=== PATIENT | male | born 1950 ===

== ENCOUNTER 2017-07-18 14:53 | Inpatient (IN) | payer OTHER ==
[2017-07-18 15:03] VITALS: BMI 25.6
[2017-07-18] MEDS ORDERED: Piperacill/Tazo 3.375gm in Dex 3.375 GM/50 ML BAG IVPB STA (15:38)
[2017-07-18 15:49] LABS: BASO % 0.6 % (0.0-2.0); EOS # 0.3 K/uL (0.0-0.7); EOS % 5.8 % (0.0-4.0); HEMOGLOBIN 14.5 g/dL (12.0-18.0); LYMPH # 1.4 K/uL (1.0-4.3); LYMPH % 32.5 % (20.0-40.0); MEAN CELL VOLUME 94.6 fL (80.0-94.0); MEAN CORPUSCULAR HEMOGLOBIN 32.4 pg (27.0-31.0); MEAN CORPUSCULAR HGB CONC 34.3 g/dL (33.0-37.0); MONO # 0.6 K/uL (0.0-0.8); MONO % 12.7 % (0.0-10.0); NEUT # 2.1 K/uL (1.8-7.0); NEUT % 48.4 % (50.0-75.0); NRBC % 0.1 % (0.0-2.0); RBC 4.48 Mil/uL (4.40-5.90); RED CELL DISTRIBUTION WIDTH 12.7 % (11.5-14.5); WHITE BLOOD COUNT 4.4 K/uL (4.8-10.8)
[2017-07-18 16:02] LABS: PROTHROMBIN TIME 11.7 SECONDS (9.7-12.2)
[2017-07-18 16:03] LABS: ALB/GLOB RATIO 1.1 (1.0-2.1); ALBUMIN 4.1 g/dL (3.5-5.0); ALT/SGPT 28 U/L (21-72); AST/SGOT 29 U/L (17-59); BLOOD UREA NITROGEN 14 mg/dL (9-20); CALCIUM 8.4 mg/dl (8.6-10.4); GFR AFRICAN-AMERICAN > 60; GFR NON-AFRICAN AMERICAN > 60
--- NOTE | 2017-07-18 16:16 | C.PDOC ---
History Of Present Illness 67 y/o male sent to ED from clinic for evaluation and admission secondary to bilateral leg cellulites worsening for 3 weeks. Patient denies fever, chills, numbness, drainage or any other complaints at this time. considtion not improving outpt.on unknown meds. pt homelss poor historia. Time Seen by Provider: 07/18/17 15:32 Chief Complaint (Nursing): Abnormal Skin Integrity History Per: Patient History/Exam Limitations: no limitations Onset/Duration Of Symptoms: Days Current Symptoms Are (Timing): Still Present Past Medical History Reviewed: Historical Data, Nursing Documentation, Vital Signs Vital Signs: Last Vital Signs Temp 97.3 F L 07/18/17 17:28 Pulse 68 07/18/17 17:28 Resp 16 07/18/17 17:28 BP 113/71 07/18/17 17:28 Pulse Ox 98 07/18/17 17:54 - Medical History PMH: No Chronic Diseases Surgical History: No Surg Hx Family History: States: No Known Family Hx - Social History Hx Alcohol Use: Yes Hx Substance Use: No - Immunization History Hx Tetanus Toxoid Vaccination: No Hx Influenza Vaccination: No Hx Pneumococcal Vaccination: No Review Of Systems Constitutional: Negative for: Fever, Chills Gastrointestinal: Negative for: Nausea, Vomiting Musculoskeletal: Positive for: Leg Pain Skin: Negative for: Rash Neurological: Negative for: Weakness, Numbness Physical Exam - Physical Exam Appears: Non-toxic, No Acute Distress Skin: Warm, Dry, No Rash Head: Atraumatic, Normacephalic Oral Mucosa: Moist Neck: Supple Cardiovascular: Rhythm Regular Respiratory: Normal Breath Sounds, No Rales, No Rhonchi, No Wheezing Gastrointestinal/Abdominal: Soft, No Tenderness, No Guarding, No Rebound Extremity: No Deformity, Other (bilateral lower leg erythema. chronic venous stasis bilaterally) Pulses: Left Dorsalis Pedis: Normal, Right Dorsalis Pedis: Normal Neurological/Psych: Oriented x3, Normal Motor, Normal Sensation Gait: Steady ED Course And Treatment - Laboratory Results Result Diagrams: 07/18/17 15:44 07/18/17 15:44 O2 Sat by Pulse Oximetry: 98 (RA) Pulse Ox Interpretation: Normal Disposition - Disposition Disposition: HOSPITALIZED Disposition Time: 05:00 Condition: STABLE - Clinical Impression Clinical Impression: Cellulitis - Scribe Statement The provider has reviewed the documentation as recorded by the Scribzan Jacobson All medical record entries made by the Jacklynibzan were at my direction and personally dictated by me. I have reviewed the chart and agree that the record accurately reflects my personal performance of the history, physical exam, medical decision making, and the department course for this patient. I have also personally directed, reviewed, and agree with the discharge instructions and disposition. Decision To Admit - Pt Status Changed To: Hospital Disposition Of: Inpatient - Admit Certification Admit to Inpatient:: After my assessment, the patient will require hospitalization for at least two midnights. This is because of the severity of symptoms shown, intensity of services needed, and/or the medical risk in this patient being treated as an outpatient. - InPatient: Physician Admission Certification: I certify that this patient requires 2 or more midnights of care for the following reason:: poor outpt candidate needs iv antibioti s - . Bed Request Type: Regular Admitting Physician: Lisa Barrera Patient Diagnosis: Cellulitis
[2017-07-18] MEDS ORDERED: Piperacillin/Tazobact 3.375 gm 100 ML IVPB ONE (16:19)
--- NOTE | 2017-07-18 16:19 | CP.PCM.HP ---
<Yaima Lagunas - Last Filed: 07/19/17 00:10> History of Present Illness - History of Present Illness History of Present Illness: 67 yo M was sent to the ED by [facility] this afternoon with complaints of B/L leg swelling, redness and pain. Patient reports these symptoms began approximately 15 days to 1 month ago. He sought treatment at [facility] at that time, and reports compliance with a medication given, but cannot recall its name. He reports swelling from mid gant down through toes on his legs B/L, with redness and warmth. He also reports a burning sensation from above the knee extending to his toes. He reports that the skin on the bottom of his feet has been shedding. Although all these symptoms have been improving, he is concerned that they have not disappeared yet. He also reports 4 days of right eye discomfort, including tearing, itchiness and a gritty sensation. He denies any recent illness, vision changes, fevers, chest pain, shortness of breath, abdominal pain. Patient is homeless and denies any trauma to his lower extremities. PMHx-unable to provide because does not know PSHx-Denies Family Hx-unable to provide because does not know Social Hx-denies tobacco or drug use. Drinks rum several times per week Allergies-Denies Meds-unknown Abx provided by clinic Present on Admission - Present on Admission Any Indicators Present on Admission: No History of DVT/PE: No History of Uncontrolled Diabetes: No Urinary Catheter: No Decubitus Ulcer Present: No Past Patient History - Past Social History Smoking Status: Never Smoked - PSYCHIATRIC Hx Substance Use: No - SURGICAL HISTORY Hx Surgeries: No - ANESTHESIA Hx Anesthesia: No Meds Allergies/Adverse Reactions: Allergies Allergy/AdvReac Type Severity Reaction Status Date / Time No Known Allergies Allergy Verified 07/18/17 15:01 Physical Exam - Constitutional Appears: Non-toxic, No Acute Distress - Head Exam Head Exam: ATRAUMATIC, NORMAL INSPECTION, NORMOCEPHALIC - Eye Exam Eye Exam: Conjunctival injection (on right), EOMI, Normal appearance - ENT Exam ENT Exam: Mucous Membranes Moist, Normal Exam - Neck Exam Neck exam: Positive for: Normal Inspection - Respiratory Exam Respiratory Exam: Chest Wall Tenderness, NORMAL BREATHING PATTERN - Cardiovascular Exam Cardiovascular Exam: REGULAR RHYTHM, +S1, +S2. absent: Bradycardia, Tachycardia - GI/Abdominal Exam GI & Abdominal Exam: Normal Bowel Sounds, Soft. absent: Tenderness - Extremities Exam Extremities exam: Positive for: full ROM. Negative for: pedal edema Additional comments: erythema to mid gant bilaterally nonpitting edema of erythematous edematous regions erythema is not sharply demarcated no hair on anterior shins noted no pain on palpation feet calloused and non smooth bilaterally with skin on the plantar surface thickened toenails, likely fungal origin capillary refill <2seconds - Back Exam Back exam: FULL ROM, NORMAL INSPECTION - Neurological Exam Neurological exam: Alert, CN II-XII Intact, Oriented x3 - Psychiatric Exam Psychiatric exam: Normal Affect, Normal Mood - Skin Skin Exam: Dry, Intact, Normal Color, Warm Results - Vital Signs Recent Vital Signs: Last Vital Signs Temp 98.2 F 07/18/17 15:04 Pulse 85 07/18/17 15:04 Resp 20 07/18/17 15:04 BP 117/79 07/18/17 15:04 Pulse Ox 98 07/18/17 16:17 - Labs Result Diagrams: 07/18/17 15:44 07/18/17 15:44 Labs: Laboratory Results - last 24 hr 07/18/17 07/18/17 07/18/17 15:44 15:44 15:44 WBC 4.4 L RBC 4.48 Hgb 14.5 Hct 42.4 MCV 94.6 H MCH 32.4 H MCHC 34.3 RDW 12.7 Plt Count 270 MPV 7.0 L Neut % (Auto) 48.4 L Lymph % (Auto) 32.5 [place] % (Auto) 12.7 H Eos % (Auto) 5.8 H Baso % (Auto) 0.6 Neut # (Auto) 2.1 Lymph # (Auto) 1.4 [place] # (Auto) 0.6 Eos # (Auto) 0.3 Baso # (Auto) 0.0 PT 11.7 INR 1.0 APTT 33 Sodium 140 Potassium 3.8 Chloride 101 Carbon Dioxide 27 Anion Gap 17 BUN 14 Creatinine 0.8 Est GFR ( Amer) > 60 Est GFR (Non-Af Amer) > 60 Random Glucose 96 Calcium 8.4 L Total Bilirubin 0.6 AST 29 ALT 28 Alkaline Phosphatase 90 Total Protein 7.7 Albumin 4.1 Globulin 3.6 Albumin/Globulin Ratio 1.1 Assessment & Plan - Assessment and Plan (Free Text) Assessment: cellulitis, bilateral leg edema dopplers of lower extremities negative for DVT follow up BNP monitor vitals monitor cbc EKG f/u blood cultures vanc and zosyn started in ED prophylaxis lovenox 40 SC daily diet: Heart Healthy Diet Yaima Lagunas PGY1 - Date & Time Date: 07/18/17 Time: 18:00 <Lisa Barrera V - Last Filed: 07/19/17 17:39> Results - Vital Signs Recent Vital Signs: Last Vital Signs Temp 98.4 F 07/19/17 15:35 Pulse 67 07/19/17 15:35 Resp 20 07/19/17 15:35 BP 114/59 L 07/19/17 15:35 Pulse Ox 97 07/19/17 15:35 - Labs Result Diagrams: 07/19/17 06:44 07/19/17 06:44 Labs: Laboratory Results - last 24 hr 07/19/17 07/19/17 06:44 06:44 WBC 4.2 L RBC 4.11 L Hgb 13.6 Hct 39.1 MCV 95.1 H MCH 33.1 H MCHC 34.8 RDW 12.6 Plt Count 253 MPV 7.3 Neut % (Auto) 54.6 Lymph % (Auto) 26.5 [place] % (Auto) 11.9 H Eos % (Auto) 6.3 H Baso % (Auto) 0.7 Neut # (Auto) 2.3 Lymph # (Auto) 1.1 [place] # (Auto) 0.5 Eos # (Auto) 0.3 Baso # (Auto) 0.0 Sodium 140 Potassium 3.8 Chloride 105 Carbon Dioxide 27 Anion Gap 12 BUN 13 Creatinine 0.8 Est GFR ( Amer) > 60 Est GFR (Non-Af Amer) > 60 Random Glucose 95 Calcium 7.7 L Phosphorus 3.1 Magnesium 2.0 Total Bilirubin 0.5 AST 23 ALT 24 Alkaline Phosphatase 73 NT-Pro-B Natriuret Pep 72.8 Total Protein 6.0 L Albumin 3.1 L D Globulin 2.9 Albumin/Globulin Ratio 1.1 Attending/Attestation - Attestation I have personally seen and examined this patient.: Yes I have fully participated in the care of the patient.: Yes I have reviewed all pertinent clinical information: Yes Notes (Text): This is late computer entry entry for 07/18/17. Patient seen, examined and case discussed with medical transport specialist. 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 Patient has noted mild rubor which improves upon elevation as well as extensive toe fungus and nail dystophy bilateral. Patient has noting swelling, nonpitting. Patient also reporting running eye (right), started 3 days ago, no trauma to eye. Patient is homeless, denies prior medical history. Assessment/Plan 1) Cellulitis Possible venous insufficiency * Admit to general medical floor * Start IV Abx: Zosyn 3.375g IV Q 6Hours and Vancomycin 1 gram IV Q 12 hours ( patient has received dose of Zosyn and Vancomycin on admission in the ED) * Florator 250mg PO BID * Venous doppler completed in the ED awaiting official report * Arterial doppler given areas of hairlessness r/o arterial insuffiency. Patient is lying comfortably in bed not suspicious for ischemic foot. * check BNP and echocardiogram r/o cardiac etiology for leg swelling * f/u blood cultures 2) Conjunctivitis, unspecified * appears allergic * start on Artificial drops 3) Tinea pedis, nail Dystophy * Podiatry (Dr. Jaxson Ray) fire suppression captain-->help appreciated 4) Prophylactic measure * Lovenox 40mg SC daily * Heart Healthy Diet * Florastor 250mg PO BID * gentle IV hydration * PT eval
[2017-07-18] MEDS: Aritificial Tears (15ml) OU SCH (18:50)
[2017-07-18] MEDS: Sodium Chloride 0.9% 1,000 ML IV SCH (19:09)
[2017-07-18] MEDS: Vancomycin 1 gm/NS 200 ml 1 GM/200 ML BAG IVPB SCH (19:25)
[2017-07-19 01:21] VITALS: RESP 20
[2017-07-19] MEDS: Piperacill/Tazo 3.375gm in Dex 3.375 GM/50 ML BAG IVPB SCH ×3 (05:00→21:25)
[2017-07-19] MEDS: Vancomycin 1 gm/NS 200 ml 1 GM/200 ML BAG IVPB SCH ×2 (05:30→17:34)
[2017-07-19 07:05] LABS: BASO % 0.7 % (0.0-2.0); EOS # 0.3 K/uL (0.0-0.7); EOS % 6.3 % (0.0-4.0); HEMOGLOBIN 13.6 g/dL (12.0-18.0); LYMPH # 1.1 K/uL (1.0-4.3); LYMPH % 26.5 % (20.0-40.0); MEAN CELL VOLUME 95.1 fL (80.0-94.0); MEAN CORPUSCULAR HEMOGLOBIN 33.1 pg (27.0-31.0); MEAN CORPUSCULAR HGB CONC 34.8 g/dL (33.0-37.0); MEAN PLATELET VOLUME 7.3 fL (7.2-11.7); MONO # 0.5 K/uL (0.0-0.8); MONO % 11.9 % (0.0-10.0); NEUT # 2.3 K/uL (1.8-7.0); NEUT % 54.6 % (50.0-75.0); NRBC % 0.1 % (0.0-2.0); RBC 4.11 Mil/uL (4.40-5.90); RED CELL DISTRIBUTION WIDTH 12.6 % (11.5-14.5); WHITE BLOOD COUNT 4.2 K/uL (4.8-10.8)
[2017-07-19 07:15] LABS: ALB/GLOB RATIO 1.1 (1.0-2.1); ALBUMIN 3.1 g/dL (3.5-5.0); ALT/SGPT 24 U/L (21-72); AST/SGOT 23 U/L (17-59); BLOOD UREA NITROGEN 13 mg/dL (9-20); CALCIUM 7.7 mg/dl (8.6-10.4); GFR AFRICAN-AMERICAN > 60; GFR NON-AFRICAN AMERICAN > 60
[2017-07-19 07:17] LABS: B-TYPE NATRIURETIC PEPTIDE 72.8 pg/mL (0-900)
[2017-07-19] MEDS: Aritificial Tears (15ml) OU SCH ×2 (09:49→19:30)
[2017-07-19] MEDS: Saccharomyces Boulardi 250 mg Cap PO SCH ×2 (09:49→17:33)
[2017-07-19] MEDS: Enoxaparin 40 mg Syringe SC SCH (09:49)
[2017-07-19] MEDS: Sodium Chloride 0.9% 1,000 ML IV SCH ×2 (14:00→21:28)
--- NOTE | 2017-07-19 16:10 | CP.PCM.PN ---
<Lino Arevalo - Last Filed: 07/19/17 16:16> Subjective - Date & Time of Evaluation Date of Evaluation: 07/19/17 Time of Evaluation: 10:00 - Subjective Subjective: PGY-[address] Barrera. No acute events noted overnight. Patient was resting comfortably in bed. He offered no complaints. He slept well and ate his breakfast. His legs did not hurt. He denied chest pain, difficulty breathing, fever, chills, nausea, vomiting. Objective - Vital Signs/Intake and Output Vital Signs (last 24 hours): Temp Pulse Resp BP Pulse Ox 98.2 F 69 20 99/56 L 97 07/19/17 08:00 07/19/17 08:00 07/19/17 08:00 07/19/17 08:00 07/19/17 08:00 Intake and Output: 07/19/17 07/19/17 06:59 18:59 Intake Total 1450 980 Output Total 600 Balance 1450 380 - Medications Medications: Current Medications Artificial Tears (Artificial Tears) 1 ml OU BID [facility] Last Admin: 07/19/17 09:49 Dose: 1 drop Clotrimazole (Lotrimin 1%) 0 gm TOP BID [facility] Enoxaparin Sodium (Lovenox) 40 mg SC DAILY [facility] Last Admin: 07/19/17 09:49 Dose: 40 mg Piperacillin Sod/Tazobactam Sod (Zosyn 3.375 Gm Iv Premix) 3.375 gm in 50 mls @ 100 mls/hr IVPB Q8H [facility] PRN Reason: Protocol Last Admin: 07/19/17 13:59 Dose: 100 mls/hr Sodium Chloride (Sodium Chloride 0.9%) 1,000 mls @ 50 mls/hr IV .Q20H [facility] Last Admin: 07/19/17 14:00 Dose: 50 mls/hr Vancomycin/Sodium Chloride (Vancomycin 1 Gm/Ns 200 Ml) 1 gm in 200 mls @ 133.333 mls/hr IVPB Q12H [facility] PRN Reason: Protocol Stop: 07/23/17 18:31 Last Admin: 07/19/17 05:30 Dose: 133.333 mls/hr Saccharomyces Boulardii (Florastor) 250 mg PO BID [facility] Last Admin: 07/19/17 09:49 Dose: 250 mg - Labs Labs: 03/17/18 06:44 07/19/17 06:44 PT 11.7 SECONDS (9.7-12.2) 07/18/17 15:44 INR 1.0 07/18/17 15:44 APTT 33 SECONDS (21-34) 07/18/17 15:44 - Additional Findings Additional findings: - Constitutional Appears: Non-toxic, No Acute Distress - Head Exam Head Exam: ATRAUMATIC, NORMAL INSPECTION, NORMOCEPHALIC - Eye Exam Eye Exam: Conjunctival injection (on right), EOMI, Normal appearance - ENT Exam ENT Exam: Mucous Membranes Moist, Normal Exam - Neck Exam Neck exam: Positive for: Normal Inspection - Respiratory Exam Respiratory Exam: Chest Wall Tenderness, NORMAL BREATHING PATTERN - Cardiovascular Exam Cardiovascular Exam: REGULAR RHYTHM, +S1, +S2. absent: Bradycardia, Tachycardia - GI/Abdominal Exam GI & Abdominal Exam: Normal Bowel Sounds, Soft. absent: Tenderness - Extremities Exam Extremities exam: Positive for: full ROM. Negative for: pedal edema Additional comments: erythema to mid gant bilaterally nonpitting edema of erythematous edematous regions erythema is not sharply demarcated no hair on anterior shins noted no pain on palpation feet calloused and non smooth bilaterally with skin on the plantar surface thickened toenails, likely fungal origin capillary refill <2seconds - Back Exam Back exam: FULL ROM, NORMAL INSPECTION - Neurological Exam Neurological exam: Alert, CN II-XII Intact, Oriented x3 - Psychiatric Exam Psychiatric exam: Normal Affect, Normal Mood - Skin Skin Exam: Dry, Intact, Normal Color, Warm Assessment and Plan - Assessment and Plan (Free Text) Assessment: Cellulitis, Bilateral Leg Edema Vitals NORMAL Podiatry on board - Dr Heather Ray Dopplers of lower extremities negative for DVT ProBNP NORMAL F/U blood cultures F/U ECHO Zosyn 3.375g IVP Q8H Vancomycin 1g IVP Q12H Clotrimazole 1% cream NS @ 50cc/hr Florastor 250mg PO BID Prophylaxis Lovenox 40 SC daily Heart Healthy Diet Contraindications to SCDs PT eval and treat <Lisa Barrera V - Last Filed: 07/19/17 17:43> Objective - Vital Signs/Intake and Output Vital Signs (last 24 hours): Temp Pulse Resp BP Pulse Ox 98.4 F 67 20 114/59 L 97 07/19/17 15:35 07/19/17 15:35 07/19/17 15:35 07/19/17 15:35 07/19/17 15:35 Intake and Output: 07/19/17 07/19/17 06:59 18:59 Intake Total 1450 980 Output Total 600 Balance 1450 380 - Medications Medications: Current Medications Artificial Tears (Artificial Tears) 1 ml OU BID [facility] Last Admin: 07/19/17 09:49 Dose: 1 drop Clotrimazole (Lotrimin 1%) 0 gm TOP BID [facility] Last Admin: 07/19/17 17:33 Dose: 1 applic Enoxaparin Sodium (Lovenox) 40 mg SC DAILY [facility] Last Admin: 07/19/17 09:49 Dose: 40 mg Piperacillin Sod/Tazobactam Sod (Zosyn 3.375 Gm Iv Premix) 3.375 gm in 50 mls @ 100 mls/hr IVPB Q8H [facility] PRN Reason: Protocol Last Admin: 07/19/17 13:59 Dose: 100 mls/hr Sodium Chloride (Sodium Chloride 0.9%) 1,000 mls @ 50 mls/hr IV .Q20H [facility] Last Admin: 07/19/17 14:00 Dose: 50 mls/hr Vancomycin/Sodium Chloride (Vancomycin 1 Gm/Ns 200 Ml) 1 gm in 200 mls @ 133.333 mls/hr IVPB Q12H [facility] PRN Reason: Protocol Stop: 07/23/17 18:31 Last Admin: 07/19/17 17:34 Dose: 133.333 mls/hr Saccharomyces Boulardii (Florastor) 250 mg PO BID [facility] Last Admin: 07/19/17 17:33 Dose: 250 mg - Labs Labs: 07/19/17 06:44 07/19/17 06:44 PT 11.7 SECONDS (9.7-12.2) 07/18/17 15:44 INR 1.0 07/18/17 15:44 APTT 33 SECONDS (21-34) 07/18/17 15:44 Attending/Attestation - Attestation I have personally seen and examined this patient.: Yes I have fully participated in the care of the patient.: Yes I have reviewed all pertinent clinical information, including history, physical exam and plan: Yes Notes (Text): Patient seen, examined and case discussed with medical liaison. Patient seen this morning. Patient denies acute complaints. Patient concerned about appearance of his legs. Patient's rubor over lower extremities has disappeared. No pitting edema. Discussed with insurance and financial services agent, Dr Ray, likely tinea pedis and recommended clipping of the nails; can follow-up with her or with the clinic which he was referred from. patient completed echocardiogram and dopplers. Patient to work with physical therapy today. Patient is likely discharge tomorrow. Assessment/Plan 1) Cellulitis Possible venous insufficiency * Admit to general medical floor * Start IV Abx: Zosyn 3.375g IV Q 6Hours and Vancomycin 1 gram IV Q 12 hours ( patient has received dose of Zosyn and Vancomycin on admission in the ED) * Florator 250mg PO BID * Venous doppler completed in the ED awaiting official report * Arterial doppler given areas of hairlessness r/o arterial insuffiency. Patient is lying comfortably in bed not suspicious for ischemic foot. * check BNP and echocardiogram r/o cardiac etiology for leg swelling * f/u blood cultures 2) Conjunctivitis, unspecified * appears allergic * start on Artificial drops 3) Tinea pedis, nail Dystophy * Podiatry (Dr. Jxason Ray) general education instructor-->help appreciated 4) Prophylactic measure * Lovenox 40mg SC daily * Heart Healthy Diet * Florastor 250mg PO BID * gentle IV hydration * PT eval
[2017-07-19] MEDS: Clotrimazole 1% Cream(30 gm) TOP SCH (17:33)
[2017-07-19] MEDS ORDERED: Vancomycin 1 gm/NS 200 ml 1 GM/200 ML BAG IVPB SCH (18:00)
--- NOTE | 2017-07-19 21:01 | CARD ---
APPROVED REPORT EXAM: Two-dimensional and M-mode echocardiogram with Doppler and color Doppler. Other Information Quality : [employer] : INDICATION EDEMA 2D DIMENSIONS IVSd0.9 (0.7-1.1cm)LVDd2.3 (3.9-5.9cm) PWd0.8 (0.7-1.1cm)LVDs3.4 (2.5-4.0cm) FS (%) 49.7 %LVEF (%)170.1 (>50%) M-Mode DIMENSIONS RVDd1.25 (2.1-3.2cm)Left Atrium (MM)3.74 (2.5-4.0cm) IVSd0.68 (0.7-1.1cm)Aortic Root3.22 (2.2-3.7cm) LVDd4.92 (4.0-5.6cm)Aortic Cusp Exc.1.94 (1.5-2.0cm) PWd0.78 (0.7-1.1cm)FS (%) 39 % LVDs3.02 (2.0-3.8cm)LVEF (%)69 (>50%) Mitral Valve MV E Bgahappl80.3cm/sMV A Qtidycev78.5cm/sE/A ratio1.4 TDI E/Lateral E'0.0E/Medial E'0.0 Tricuspid Valve TR Peak Fromyxde281ve/sTR Peak Gr.[id number] LEFT VENTRICLE The left ventricle is normal size. There is normal left ventricular wall thickness. The left ventricular function is normal. The left ventricular ejection fraction is within the normal range. There is normal LV segmental wall motion. The left ventricular diastolic function is normal. RIGHT VENTRICLE The right ventricle is normal size. ATRIA The left atrium size is normal. The right atrium size is normal. AORTIC VALVE The aortic valve is normal in structure. MITRAL VALVE The mitral valve is normal in structure. TRICUSPID VALVE There is mild tricuspid regurgitation. <Conclusion> Normal LV systolic function. Normal chamber size. Mild TR.
--- NOTE | 2017-07-19 21:55 | CP.PCM.CON ---
History of Present Illness - History of Present Illness History of Present Illness: 67 year old male seen at bedside complaining of painful, red, swollen legs and fungal toes. Patient states that changes to his legs have been worsening over the last three months. He denies any known illiciting events. Denies any attempts at treatment or seeing any doctors for this problem until now. Denies any further pedal complaints at this time. Denies any recent associated N/V/F/C/ CP/SOB/D/posterior calf pain when squeezed Review of Systems - Review of Systems Review of Systems: As per HPI Past Patient History - Past Social History Smoking Status: Never Smoked - MUSCULOSKELETAL/RHEUMATOLOGICAL Hx Falls: No - PSYCHIATRIC Hx Substance Use: No - SURGICAL HISTORY Hx Surgeries: No - ANESTHESIA Hx Anesthesia: No Meds Allergies/Adverse Reactions: Allergies Allergy/AdvReac Type Severity Reaction Status Date / Time No Known Allergies Allergy Verified 07/18/17 15:01 - Medications Medications: Current Medications Artificial Tears (Artificial Tears) 1 ml OU BID [facility] Last Admin: 07/19/17 19:30 Dose: 1 drop Clotrimazole (Lotrimin 1%) 0 gm TOP BID [facility] Last Admin: 07/19/17 17:33 Dose: 1 applic Enoxaparin Sodium (Lovenox) 40 mg SC DAILY [facility] Last Admin: 07/19/17 09:49 Dose: 40 mg Piperacillin Sod/Tazobactam Sod (Zosyn 3.375 Gm Iv Premix) 3.375 gm in 50 mls @ 100 mls/hr IVPB Q8H [facility] PRN Reason: Protocol Last Admin: 07/19/17 21:25 Dose: 100 mls/hr Sodium Chloride (Sodium Chloride 0.9%) 1,000 mls @ 50 mls/hr IV .Q20H [facility] Last Admin: 07/19/17 21:28 Dose: 50 mls/hr Vancomycin/Sodium Chloride (Vancomycin 1 Gm/Ns 200 Ml) 1 gm in 200 mls @ 133.333 mls/hr IVPB Q12H [facility] PRN Reason: Protocol Stop: 07/23/17 18:31 Last Admin: 07/19/17 17:34 Dose: 133.333 mls/hr Saccharomyces Boulardii (Florastor) 250 mg PO BID [facility] Last Admin: 07/19/17 17:33 Dose: 250 mg Physical Exam - Constitutional Appears: Well, Non-toxic, No Acute Distress - Extremities Exam Additional comments: LE focused exam VASC: DP/PT pulses are palpable 2/4 B/L. Cap refill time: < 3 seconds to all digits. Skin temperature warm to warm from proximal to distal. no pitting or non -pitting edema noted DERM: Chronic fungal changes noted to all digits and plantar feet. Very minimal evidence of mild erythematous/cellulitic changes to b/l legs most likely from severity of fungal toes. No open lesions, no inter digital maceration, nails are cut to hygenic length. NEURO: Epicritic and protective sensation grossly intact b/l ORTHO: no pain during AROM and PROM at the AJ or MTPJ - Neurological Exam Neurological exam: Alert, Oriented x3 - Psychiatric Exam Psychiatric exam: Normal Affect, Normal Mood Results - Vital Signs Recent Vital Signs: Last Vital Signs Temp 98.4 F 07/19/17 15:35 Pulse 67 07/19/17 15:35 Resp 20 07/19/17 15:35 BP 114/59 L 07/19/17 15:35 Pulse Ox 97 07/19/17 15:35 - Labs Result Diagrams: 07/19/17 06:44 07/19/17 06:44 Labs: Laboratory Results - last 24 hr 07/19/17 07/19/17 06:44 06:44 WBC 4.2 L RBC 4.11 L Hgb 13.6 Hct 39.1 MCV 95.1 H MCH 33.1 H MCHC 34.8 RDW 12.6 Plt Count 253 MPV 7.3 Neut % (Auto) 54.6 Lymph % (Auto) 26.5 [place] % (Auto) 11.9 H Eos % (Auto) 6.3 H Baso % (Auto) 0.7 Neut # (Auto) 2.3 Lymph # (Auto) 1.1 [place] # (Auto) 0.5 Eos # (Auto) 0.3 Baso # (Auto) 0.0 Sodium 140 Potassium 3.8 Chloride 105 Carbon Dioxide 27 Anion Gap 12 BUN 13 Creatinine 0.8 Est GFR ( Amer) > 60 Est GFR (Non-Af Amer) > 60 Random Glucose 95 Calcium 7.7 L Phosphorus 3.1 Magnesium 2.0 Total Bilirubin 0.5 AST 23 ALT 24 Alkaline Phosphatase 73 NT-Pro-B Natriuret Pep 72.8 Total Protein 6.0 L Albumin 3.1 L D Globulin 2.9 Albumin/Globulin Ratio 1.1 Assessment & Plan - Assessment and Plan (Free Text) Assessment: 67 year old male seen for minor cellulitic changes to b/l legs with severe fungal changes seen to b/l feet Plan: Patient seen and evaluated Afebrile, absent leukocytosis Plan discussed with attending Dr. Ray Clotrimazole 1% ordered for patient to be applied to b/l feet BID Feet cleansed with saline and left open to air Patient is stable from podiatric standpoiont Upon discharge patient may follow up with Dr. Ray in her clinic Podiatry will continue to follow while patient in house - Date & Time Date: 07/19/17 Time: 22:00
[2017-07-20 01:27] VITALS: BP 116/57; PULSE 59; TEMP 98; O2SAT 98
[2017-07-20] MEDS: Piperacill/Tazo 3.375gm in Dex 3.375 GM/50 ML BAG IVPB SCH ×2 (05:21→14:32)
[2017-07-20] MEDS: Vancomycin 1 gm/NS 200 ml 1 GM/200 ML BAG IVPB SCH (05:52)
[2017-07-20 08:04] LABS: BASO % 0.8 % (0.0-2.0); EOS # 0.5 K/uL (0.0-0.7); EOS % 11.3 % (0.0-4.0); HEMOGLOBIN 13.7 g/dL (12.0-18.0); LYMPH # 1.1 K/uL (1.0-4.3); LYMPH % 23.8 % (20.0-40.0); MEAN CELL VOLUME 94.8 fL (80.0-94.0); MEAN CORPUSCULAR HEMOGLOBIN 33.2 pg (27.0-31.0); MEAN PLATELET VOLUME 7.5 fL (7.2-11.7); MONO # 0.5 K/uL (0.0-0.8); MONO % 10.3 % (0.0-10.0); NEUT # 2.5 K/uL (1.8-7.0); NEUT % 53.8 % (50.0-75.0); RBC 4.13 Mil/uL (4.40-5.90); RED CELL DISTRIBUTION WIDTH 12.6 % (11.5-14.5); WHITE BLOOD COUNT 4.7 K/uL (4.8-10.8)
[2017-07-20 08:33] LABS: ALBUMIN 3.1 g/dL (3.5-5.0); ALT/SGPT 30 U/L (21-72); AST/SGOT 26 U/L (17-59); BLOOD UREA NITROGEN 12 mg/dL (9-20); GFR AFRICAN-AMERICAN > 60; GFR NON-AFRICAN AMERICAN > 60
[2017-07-20] MEDS: Saccharomyces Boulardi 250 mg Cap PO SCH (10:08)
[2017-07-20] MEDS: Clotrimazole 1% Cream(30 gm) TOP SCH (10:09)
[2017-07-20] MEDS: Aritificial Tears (15ml) OU SCH (10:09)
[2017-07-20] MEDS: Enoxaparin 40 mg Syringe SC SCH (10:09)
[2017-07-20] MEDS: Sodium Chloride 0.9% 1,000 ML IV SCH (10:14)
--- NOTE | 2017-07-20 11:29 | CP.PCM.DIS ---
Provider - Provider Date of Admission: 07/18/17 16:10 Attending physician: Lisa Barrera DO Primary care physician: PMD: none Consults: Podiatry: Dr Panda Ray Time Spent in preparation of Discharge (in minutes): 33 Hospital Course - Lab Results Lab Results: Micro Results 07/18/17 15:45 Blood Blood Culture - Preliminary NO GROWTH AFTER 24 HOURS 07/18/17 15:30 Blood Blood Culture - Preliminary NO GROWTH AFTER 24 HOURS Most Recent Lab Values WBC 4.7 K/uL (4.8-10.8) L 07/20/17 07:53 RBC 4.13 Mil/uL (4.40-5.90) L 07/20/17 07:53 Hgb 13.7 g/dL (12.0-18.0) 07/20/17 07:53 Hct 39.1 % (35.0-51.0) 07/20/17 07:53 MCV 94.8 fL (80.0-94.0) H 07/20/17 07:53 MCH 33.2 pg (27.0-31.0) H 07/20/17 07:53 MCHC 35.0 g/dL (33.0-37.0) 07/20/17 07:53 RDW 12.6 % (11.5-14.5) 07/20/17 07:53 Plt Count 247 K/uL (130-400) 07/20/17 07:53 MPV 7.5 fL (7.2-11.7) 07/20/17 07:53 Neut % (Auto) 53.8 % (50.0-75.0) 07/20/17 07:53 Lymph % (Auto) 23.8 % (20.0-40.0) 07/20/17 07:53 [place] % (Auto) 10.3 % (0.0-10.0) H 07/20/17 07:53 Eos % (Auto) 11.3 % (0.0-4.0) H 07/20/17 07:53 Baso % (Auto) 0.8 % (0.0-2.0) 07/20/17 07:53 Neut # (Auto) 2.5 K/uL (1.8-7.0) 07/20/17 07:53 Lymph # (Auto) 1.1 K/uL (1.0-4.3) 07/20/17 07:53 [place] # (Auto) 0.5 K/uL (0.0-0.8) 07/20/17 07:53 Eos # (Auto) 0.5 K/uL (0.0-0.7) 07/20/17 07:53 Baso # (Auto) 0.0 K/uL (0.0-0.2) 07/20/17 07:53 PT 11.7 SECONDS (9.7-12.2) 07/18/17 15:44 INR 1.0 07/18/17 15:44 APTT 33 SECONDS (21-34) 07/18/17 15:44 Sodium 140 mmol/L (132-148) 07/20/17 07:53 Potassium 3.8 mmol/L (3.6-5.2) 07/20/17 07:53 Chloride 104 mmol/L (98-107) 07/20/17 07:53 Carbon Dioxide 27 mmol/L (22-30) 07/20/17 07:53 Anion Gap 13 (10-20) 07/20/17 07:53 BUN 12 mg/dL (9-20) 07/20/17 07:53 Creatinine 1.0 mg/dL (0.8-1.5) 07/20/17 07:53 Est GFR ( Amer) > 60 07/20/17 07:53 Est GFR (Non-Af Amer) > 60 07/20/17 07:53 Random Glucose 100 mg/dL (75-110) 07/20/17 07:53 Calcium 8.0 mg/dl (8.6-10.4) L 07/20/17 07:53 Phosphorus 3.1 mg/dL (2.5-4.5) 07/20/17 07:53 Magnesium 2.0 mg/dL (1.6-2.3) 07/20/17 07:53 Total Bilirubin 0.7 mg/dL (0.2-1.3) 07/20/17 07:53 AST 26 U/L (17-59) 07/20/17 07:53 ALT 30 U/L (21-72) 07/20/17 07:53 Alkaline Phosphatase 61 U/L (38-126) 07/20/17 07:53 NT-Pro-B Natriuret Pep 72.8 pg/mL (0-900) 07/19/17 06:44 Total Protein 6.1 g/dL (6.3-8.3) L 07/20/17 07:53 Albumin 3.1 g/dL (3.5-5.0) L 07/20/17 07:53 Globulin 3.0 gm/dL (2.2-3.9) 07/20/17 07:53 Albumin/Globulin Ratio 1.0 (1.0-2.1) 07/20/17 07:53 - Hospital Course Hospital Course: 67 yo M was sent to the ED by [facility] this afternoon with complaints of B/L leg swelling, redness and pain. Patient reports these symptoms began approximately 15 days to 1 month ago. He sought treatment at [facility] at that time, and reports compliance with a medication given, but cannot recall its name. He reports swelling from mid gant down through toes on his legs B/L, with redness and warmth. He also reports a burning sensation from above the knee extending to his toes. He reports that the skin on the bottom of his feet has been shedding. Although all these symptoms have been improving, he is concerned that they have not disappeared yet. He also reports 4 days of right eye discomfort, including tearing, itchiness and a gritty sensation. He denies any recent illness, vision changes, fevers, chest pain, shortness of breath, abdominal pain. Patient is homeless and denies any trauma to his lower extremities. PMHx-unable to provide because does not know PSHx-Denies Family Hx-unable to provide because does not know Social Hx-denies tobacco or drug use. Drinks rum several times per week Allergies-Denies Meds-unknown Abx provided by clinic HOSPITAL COURSE: Patient was treated for a very mild cellulitis of the lower legs bilaterally. This could also just have been venous stasis. Podiatry was consulted (who treated the patient appropriately). Venous dopplers were done which were negative for a DVT. ProBNP was negative. Blood cultures were negative x2. He was given empiric coverage antibiotics zosyn and vancomycin even though he was afebrile and without leukocytosis. To treat his skin discoloration (cellulits?) clotrimazole 1% was applied twice a day. He was also given fluids and florastor (to prevent diarrhea from the abx). An ECHO was done which was normal with the exception of mild tricuspid regurgitation. The last progress note is shown below for further details on management: Assessment/Plan 1) Cellulitis Possible venous insufficiency * Admit to general medical floor * Start IV Abx: Zosyn 3.375g IV Q 6Hours and Vancomycin 1 gram IV Q 12 hours ( patient has received dose of Zosyn and Vancomycin on admission in the ED) * Florastor 250mg PO BID * Venous doppler completed in the ED awaiting official report - NEGATIVE * Arterial doppler given areas of hairlessness r/o arterial insuffiency. Patient is lying comfortably in bed not suspicious for ischemic foot. * check BNP and echocardiogram r/o cardiac etiology for leg swelling - NORMAL * f/u blood cultures - NEGATIVE 2) Conjunctivitis, unspecified * appears allergic * start on Artificial drops 3) Tinea pedis, nail Dystophy * Podiatry (Dr. Jaxson Ray) control and recovery combat rescue-->help appreciated 4) Prophylactic measure * Lovenox 40mg SC daily * Heart Healthy Diet * Florastor 250mg PO BID * gentle IV hydration * PT eval Discharge Exam - Additional Findings Additional findings: - Constitutional Appears: Non-toxic, No Acute Distress - Head Exam Head Exam: ATRAUMATIC, NORMAL INSPECTION, NORMOCEPHALIC - Eye Exam Eye Exam: Conjunctival injection (on right), EOMI, Normal appearance - ENT Exam ENT Exam: Mucous Membranes Moist, Normal Exam - Neck Exam Neck exam: Positive for: Normal Inspection - Respiratory Exam Respiratory Exam: Chest Wall Tenderness, NORMAL BREATHING PATTERN - Cardiovascular Exam Cardiovascular Exam: REGULAR RHYTHM, +S1, +S2. absent: Bradycardia, Tachycardia - GI/Abdominal Exam GI & Abdominal Exam: Normal Bowel Sounds, Soft. absent: Tenderness - Extremities Exam Extremities exam: Positive for: full ROM. Negative for: pedal edema Additional comments: MILD erythema to mid gant bilaterally, MILD erythema is not sharply demarcated 1+ nonpitting edema of erythematous edematous regions no hair on anterior shins noted no pain on palpation feet calloused and non smooth bilaterally with skin on the plantar surface thickened toenails capillary refill <2seconds - Back Exam Back exam: FULL ROM, NORMAL INSPECTION - Neurological Exam Neurological exam: Alert, CN II-XII Intact, Oriented x3 - Psychiatric Exam Psychiatric exam: Normal Affect, Normal Mood - Skin Skin Exam: Dry, Intact, Normal Color, Warm Discharge Plan - Discharge Medications Prescriptions: Clotrimazole 1% Cream [Lotrimin 1%] 1 tub TOP BID #1 tube - Follow Up Plan Condition: STABLE Disposition: HOME/ ROUTINE Instructions: Cellulitis (DC), Cellulitis (GEN) Additional Instructions: Patient is medically stable for discharge. Patient should establish care with our [facility] (Ph: ). On his first clinic visit he can then attain a referral to a foot doctor. The information for the foot doctor, Dr Ray, is also included. Patient will be given scripts for the following new medications: 1. Clotrimazol 1% cream [Lotrimin 1%] 1 tube apply to lower legs bilaterally once in morning and once at night For re-fills you need to go see a Primary Medical Doctor (such as one at the [facility], phone number above) If symptoms worsen or return, promptly return to the emergency department. Referrals: [facility] [Provider Group] Heather Ray DPM [Staff Provider] -
[2017-07-20] MEDS ORDERED: Pneumococcal 23-Valent Vaccine IM ONE (12:50)
[2017-07-20] MEDS ORDERED: Influenza Vaccine 60 mcg/0.5 mL SYR (4YR UP) IM ONE (12:52)
--- NOTE | 2017-07-20 15:11 | CP.PCM.PN ---
Subjective - Date & Time of Evaluation Date of Evaluation: 07/20/17 Time of Evaluation: 12:09 - Subjective Subjective: Podiatry progress note for Dr. Ray- 67 year old male seen at bedside for painful, red, swollen legs and fungal toes. Patient is AAO x 3 and NAD resting comfortably in bed. Denies any leg pain at this time. Denies any acute overnight events. Denies any recent N/V/F/C/ CP/SOB/D/posterior calf pain Objective - Vital Signs/Intake and Output Vital Signs (last 24 hours): Temp Pulse Resp BP Pulse Ox 98 F 59 L 20 116/57 L 98 07/20/17 00:00 07/20/17 00:00 07/20/17 00:00 07/20/17 00:00 07/20/17 00:00 Intake and Output: 07/20/17 07/20/17 06:59 18:59 Intake Total 580 Balance 580 - Labs Labs: 07/20/17 07:53 07/20/17 07:53 PT 11.7 SECONDS (9.7-12.2) 07/18/17 15:44 INR 1.0 07/18/17 15:44 APTT 33 SECONDS (21-34) 07/18/17 15:44 - Constitutional Appears: Well, Non-toxic, No Acute Distress - Extremities Exam Additional comments: LE focused exam VASC: DP/PT pulses are palpable 2/4 B/L. Cap refill time: < 3 seconds to all digits. Skin temperature warm to warm from proximal to distal. no pitting or non -pitting edema noted DERM: Chronic fungal changes noted to all digits and plantar feet. Very minimal evidence of mild erythematous/cellulitic changes to b/l legs most likely from severity of fungal toes, resolved. No open lesions, no inter digital maceration , nails are cut to hygenic length. NEURO: Epicritic and protective sensation grossly intact b/l ORTHO: no pain during AROM and PROM at the AJ or MTPJ - Neurological Exam Neurological Exam: Alert, Awake, Oriented x3 - Psychiatric Exam Psychiatric exam: Normal Affect, Normal Mood Assessment and Plan - Assessment and Plan (Free Text) Assessment: 67 year old male seen for minor cellulitic changes to b/l legs with severe fungal changes seen to b/l feet Plan: Patient seen and evaluated at bedside Afebrile, absent leukocytosis Plan discussed with attending Dr. Ray Clotrimazole 1% applied to feet Feet left open to air No further intervention planned at this time Patient is stable from podiatric standpoiont Upon discharge patient may follow up with Dr. Ray in her clinic Podiatry will continue to follow while patient in house
--- NOTE | 2017-07-21 10:47 | VASCLAB ---
PROCEDURE: Lower Extremity Venous Duplex Exam. HISTORY: leg pain PRIORS: None. TECHNIQUE: Bilateral common femoral, femoral, popliteal and posterior tibial, peroneal and great saphenous veins were evaluated. Flow was assessed with color Doppler, compressibility, assessment of phasic flow and augmentation response. Report prepared by RENE Thakur, RVT FINDINGS: RIGHT: 1. Common Femoral Vein: 1.1. Compressibility - Fully compressible: Thrombus - None : Flow - Phasic: Augmentation -Normal: Reflux - None. 2. Femoral Vein: 2.1. Compressibility - Fully compressible: Thrombus - None : Flow - Phasic: Augmentation -Normal: Reflux - None. 3. Popliteal Vein: 3.1. Compressibility - Fully compressible: Thrombus - None : Flow - Phasic: Augmentation -Normal: Reflux - None. 4. Posterior Tibial Vein: 4.1. Compressibility - Fully compressible: Thrombus - None: Flow - Phasic: Augmentation -Normal: Reflux - None. 5. Peroneal Vein: 5.1. Compressibility - Fully compressible: Thrombus - None: Flow - Phasic: Augmentation -Normal: Reflux - None. 6. Great Saphenous Vein: 6.1. Compressibility - Fully compressible: Thrombus - None: Flow - Phasic: Augmentation - Normal: Reflux - None. LEFT: 1. Common Femoral Vein: 1.1. Compressibility - Fully compressible: Thrombus - None: Flow - Phasic: Augmentation -Normal: Reflux - None. 2. Femoral Vein: 2.1. Compressibility - Fully compressible: Thrombus - None: Flow - Phasic: Augmentation -Normal: Reflux - None. 3. Popliteal Vein: 3.1. Compressibility - Fully compressible: Thrombus - None : Flow - Phasic: Augmentation -Normal: Reflux - None. 4. Posterior Tibial Vein: 4.1. Compressibility - Fully compressible: Thrombus - None: Flow - Phasic: Augmentation -Normal: Reflux - None. 5. Peroneal Vein: 5.1. Compressibility - Fully compressible: Thrombus - None: Flow - Phasic: Augmentation -Normal: Reflux - None. 6. Great Saphenous Vein: 6.1. Compressibility - Fully compressible: Thrombus - None: Flow - Phasic: Augmentation - Normal: Reflux - None. OTHER FINDINGS: Right: None significant. Left: None significant. IMPRESSION: Right: No evidence of deep or superficial vein thrombosis of the right lower extremity. Normal valve function noted of the right side. Left: No evidence of deep or superficial vein thrombosis of the left lower extremity. Normal valve function noted of the left side.
== END 2017-07-20 14:00 | disposition home or self-care (01) | DRG 278 ==
LOC: C.ER 14:53 → C.9E 16:10 → C.3T 16:25
PROVIDERS: ADMIT Hospitalist; ATTEND Hospitalist
DX: L03.116 Cellulitis of left lower limb (principal); B35.3 Tinea pedis; H10.9 Unspecified conjunctivitis; L03.115 Cellulitis of right lower limb; I87.8 Other specified disorders of veins; Z59.0 Homelessness